=== PATIENT | male | born 1960 | race African-American/Black ===

== ENCOUNTER 2019-10-21 10:58 | Inpatient (IN) | payer OTHER ==
[~2019-10-21] VITALS: Ht 182.9 cm; Wt 138.4 kg
[2019-10-21] MEDS ORDERED: IPRATROPIUM BROMIDE (0.02%) 0.5MG/2.5ML NEB HHN STA (11:12)
[2019-10-21] MEDS ORDERED: METHYLPREDNISOLONE SOD SUCC 125 MG/2 ML VIAL IV STA (11:12)
[2019-10-21] MEDS ORDERED: MAGNESIUM 2 G PREMIX 50 ML IV ONE (11:15)
[2019-10-21] MEDS ORDERED: P EP PO (11:22)
[2019-10-21] MEDS ORDERED: PRED10TA23 PO (11:22)
[2019-10-21] MEDS ORDERED: FLUT16SP15 NS (11:22)
[2019-10-21] MEDS ORDERED: ATOR-2 PO (11:22)
[2019-10-21] MEDS ORDERED: CHOL200059 PO (11:22)
[2019-10-21] MEDS ORDERED: SEVE800T8 PO (11:22)
[2019-10-21] MEDS ORDERED: MONT10TA21 PO (11:22)
[2019-10-21] MEDS ORDERED: WARF-53 PO (11:22)
[2019-10-21] MEDS ORDERED: SILD20TA PO (11:22)
[2019-10-21] MEDS ORDERED: AMLO5TAB88 PO (11:22)
[2019-10-21] MEDS ORDERED: CALC0.253 PO (11:22)
[2019-10-21] MEDS ORDERED: IPRA3AMP31 IH (11:22)
[2019-10-21] MEDS ORDERED: LOSA100T32 PO (11:22)
[2019-10-21] MEDS ORDERED: METO25TA6 PO (11:22)
[2019-10-21 11:42] LABS: BASOPHILS % 0.3 % (0.0-2.0); CHLORIDE 107 mEq/L (98-107); EOSINOPHILS % 0.1 % (0.0-5.0); HEMATOCRIT. 30.6 % (42.0-52.0); LYMPHOCYTES % 14.4 % (20.0-50.0); MEAN CORPUSCULAR HEMOGLOBIN 30.4 pg (28.0-32.0); MEAN CORPUSCULAR VOLUME 93.1 fL (80.0-94.0); MEAN PLATELET VOLUME 10.9 fl (7.4-10.4); MONOCYTES % 7.6 % (2.0-8.0); NEUTROPHILS % 77.6 % (40.0-76.0); PLATELET 98 x1000/uL (130-400); RED BLOOD CELL COUNT 3.29 mill/uL (4.7-6.1); RED CELL DISTRIBUTION WIDTH 16.2 % (11.6-14.6)
[2019-10-21 11:49] LABS: INR 3.6; PARTIAL THROMBOPLASTIN TIME 37.6 sec (23.4-31.0); PROTHROMBIN TIME 34.5 sec (9.6-11.0)
[2019-10-21] MEDS ORDERED: VANCOMYCIN 1 G PREMIX 200 ML IV ONE (12:00)
[2019-10-21] MEDS ORDERED: PIPERACILLIN/TAZ 3.375G PREMIX 50 ML IV ONE (12:00)
[2019-10-21 12:05] LABS: BG BASE EXCESS -8.2 mmol/L (-2.0-2.0); BG CARBOXYHEMOGLOBIN 1.3 % (0.5-1.5); BG DEOXYHEMOGLOBIN 3.6 % (0.0-5.0); BG FRACTION INSPIRED OXYGEN 21; BG HCO3 ACT 17.7 mmol/L (22.0-26.0); BG METHEMOGLOBIN 0.3 % (0.0-1.5); BG OXYGEN SATURATION 96.3 % (92.0-98.5); BG OXYHEMOGLOBIN 94.8 % (94.0-97.0); BG PH 7.287 (7.350-7.450); BG PO2 95.9 mmHg (75.0-100.0); BG SAMPLE SITE LEFT RADIAL; BG TOTAL HEMOGLOBIN 12.2 g/dL (12.0-18.0); BG VENT MODE ROOM AIR
[2019-10-21] MEDS ORDERED: CLOPIDOGREL 75MG TABLET PO ONE (14:30)
[2019-10-21] MEDS ORDERED: ACETAMINOPHEN 325MG TABLET PO PRN (15:00)
[2019-10-21] MEDS ORDERED: IPRATROPIUM/ALBUTEROL 0.5-3(2.5)MG/3ML NEB HHN PRN (15:00)
[2019-10-21] MEDS ORDERED: CLONIDINE 0.1MG TABLET PO PRN (15:00)
[2019-10-21] MEDS ORDERED: ONDANSETRON HCL 4MG/2ML INJ IV PRN (15:00)
[2019-10-21] MEDS ORDERED: DIPHENHYDRAMINE 50MG/ML VIAL IV PRN (15:00)
[2019-10-21 16:00] VITALS: BP 131/85
[2019-10-21 16:33] VITALS: BP 131/85
[2019-10-21 17:01] LABS: PHOSPHORUS 4.4 mg/dL (2.5-4.9)
[2019-10-21 18:00] VITALS: BP 136/60
[2019-10-21] MEDS: MORPHINE SULFATE 4 MG/ML CPJ (NOT FOR IM USE) IV PRN (18:05)
[2019-10-21 20:01] VITALS: BP 131/89
[2019-10-21] MEDS: SODIUM CHLORIDE 0.9% INJ 3ML FLUSH IVF SCH (22:00)
[2019-10-21 22:03] VITALS: BP 129/76
[2019-10-22] VITALS (16 sets, daily range): BP systolic 108–159; BP diastolic 42–102
[2019-10-22] MEDS: MORPHINE SULFATE 4 MG/ML CPJ (NOT FOR IM USE) IV PRN ×3 (00:23→21:50)
[2019-10-22] MEDS: ATORVASTATIN CALCIUM 40MG TABLET PO SCH ×2 (00:51→21:35)
[2019-10-22] MEDS: GUAIFENESIN 600MG ER TABLET PO SCH ×3 (00:52→21:34)
[2019-10-22] MEDS: METHYLPREDNISOLONE SOD SUCC 125 MG/2 ML VIAL IV SCH ×4 (00:52→21:37)
[2019-10-22] MEDS: OMEPRAZOLE 20MG CAPSULE EXTENDED RELEASE PO SCH ×3 (00:52→21:50)
[2019-10-22] MEDS: GUAIFENESIN 200MG/10ML SUGAR FREE UDC PO PRN ×2 (00:53→21:36)
[2019-10-22] MEDS: BENZONATATE 100MG CAPSULE PO SCH ×4 (00:53→21:35)
[2019-10-22] MEDS: IPRATROPIUM/ALBUTEROL 0.5-3(2.5)MG/3ML NEB HHN SCH ×4 (01:34→20:55)
[2019-10-22] MEDS: SODIUM CHLORIDE 0.9% INJ 3ML FLUSH IVF SCH ×3 (06:44→21:50)
[2019-10-22] MEDS: CALCITRIOL 0.25MCG CAPSULE PO SCH (08:18)
[2019-10-22] MEDS: SEVELAMER CARBONATE 800 MG TABLET PO SCH ×3 (08:18→17:35)
[2019-10-22] MEDS: CHOLECALCIFEROL (D3) 1000 UNIT TABLET PO SCH (08:19)
[2019-10-22 17:08] LABS: CREATINE KINASE MB FRACTION 9.4 ng/mL (0.5-3.6)
[2019-10-22 18:52] LABS: T4 FREE 0.79 ng/dL (0.76-1.46)
[2019-10-22] MEDS: CARVEDILOL 3.125 MG TABLET PO SCH (21:34)
[2019-10-23] MEDS: IPRATROPIUM/ALBUTEROL 0.5-3(2.5)MG/3ML NEB HHN SCH ×3 (01:50→12:04)
[2019-10-23] MEDS: SODIUM CHLORIDE 0.9% INJ 3ML FLUSH IVF SCH ×2 (06:00→14:22)
[2019-10-23 06:31] LABS: HEMATOCRIT. 30.3 % (42.0-52.0); MEAN CORPUSCULAR HEMOGLOBIN 30.3 pg (28.0-32.0); MEAN CORPUSCULAR VOLUME 92.1 fL (80.0-94.0); MEAN PLATELET VOLUME 10.7 fl (7.4-10.4); PLATELET 105 x1000/uL (130-400); RED BLOOD CELL COUNT 3.29 mill/uL (4.7-6.1); RED CELL DISTRIBUTION WIDTH 16.7 % (11.6-14.6)
[2019-10-23 07:40] LABS: CREATINE KINASE MB FRACTION 9.3 ng/mL (0.5-3.6)
[2019-10-23] MEDS: OMEPRAZOLE 20MG CAPSULE EXTENDED RELEASE PO SCH (09:13)
[2019-10-23] MEDS: GUAIFENESIN 200MG/10ML SUGAR FREE UDC PO PRN ×2 (09:13→14:21)
[2019-10-23] MEDS: CHOLECALCIFEROL (D3) 1000 UNIT TABLET PO SCH (09:14)
[2019-10-23] MEDS: GUAIFENESIN 600MG ER TABLET PO SCH (09:15)
[2019-10-23] MEDS: BENZONATATE 100MG CAPSULE PO SCH ×2 (09:15→14:21)
[2019-10-23] MEDS: CALCITRIOL 0.25MCG CAPSULE PO SCH (09:15)
[2019-10-23] MEDS: SEVELAMER CARBONATE 800 MG TABLET PO SCH ×2 (09:15→14:21)
[2019-10-23] MEDS: CARVEDILOL 3.125 MG TABLET PO SCH (09:15)
[2019-10-23] MEDS: METHYLPREDNISOLONE SOD SUCC 125 MG/2 ML VIAL IV SCH ×2 (09:30→14:21)
[2019-10-23 10:00] VITALS: BP 142/69
[2019-10-23 11:38] LABS: PLATELET ESTIMATE DECREASED
[2019-10-23 12:00] VITALS: BP 139/91
[2019-10-23 13:39] VITALS: BP 136/52
[2019-10-23] MEDS ORDERED: LIDOCAINE HCL 1% 20ML VIAL (Pyxis) INJ ONE (15:36)
[2019-10-23] MEDS ORDERED: SODIUM BICARBONATE 4% (2.4MEQ) 5ML VIAL IV ONE (15:36)
[2019-10-23 16:00] VITALS: BP 128/82
[2019-10-23 16:51] VITALS: BP 128/82
[2019-10-23] MEDS ORDERED: CEFTRIAXONE 1 G PREMIX 50 ML IV SCH (17:00)
[2019-10-23 17:15] VITALS: BP 128/82
[2019-10-23] MEDS ORDERED: CLOPIDOGREL 75MG TABLET PO SCH (17:30)
[2019-10-23] MEDS ORDERED: AZITHROMYCIN 500 MG in DEXT 5% WATER 250 ML IV SCH (18:00)
== END 2019-10-23 17:50 | disposition short-term general hospital (02) | DRG 280 ==
LOC: ER 10:58 → 5EST 13:43 → EDBEDREQ 13:46 → EDBEDREQSVC 13:46 → ENRESERV 14:37
PROVIDERS: ADMIT Internal Medicine; ATTEND Internal Medicine
PROC: 5A2204Z Restoration of Cardiac Rhythm, Single (ICD-10-PCS; 2019-10-21)
PROC: 3E1M39Z Irrigation of Peritoneal Cavity using Dialysate, Percutaneous Approach (ICD-10-PCS; 2019-10-21)
PROC: 3E1M39Z Irrigation of Peritoneal Cavity using Dialysate, Percutaneous Approach (ICD-10-PCS; 2019-10-22)
PROC: 02HV33Z Insertion of Infusion Device into Superior Vena Cava, Percutaneous Approach (ICD-10-PCS; principal; 2019-10-23)
PROC: B548ZZA Ultrasonography of Superior Vena Cava, Guidance (ICD-10-PCS; 2019-10-23)
PROC: 3E1M39Z Irrigation of Peritoneal Cavity using Dialysate, Percutaneous Approach (ICD-10-PCS; 2019-10-23)
DX: I21.4 Non-ST elevation (NSTEMI) myocardial infarction (principal); N18.6 End stage renal disease; J18.9 Pneumonia, unspecified organism; D68.9 Coagulation defect, unspecified; E44.0 Moderate protein-calorie malnutrition; I82.531 Chronic embolism and thrombosis of right popliteal vein; E87.2 Acidosis; I47.1 Supraventricular tachycardia; I12.0 Hypertensive chronic kidney disease with stage 5 chronic kidney disease or end stage renal disease; J44.0 Chronic obstructive pulmonary disease with (acute) lower respiratory infection; Z68.41 Body mass index [BMI] 40.0-44.9, adult; D69.6 Thrombocytopenia, unspecified; E11.22 Type 2 diabetes mellitus with diabetic chronic kidney disease; E66.01 Morbid (severe) obesity due to excess calories; E78.00 Pure hypercholesterolemia, unspecified; I95.9 Hypotension, unspecified; E78.5 Hyperlipidemia, unspecified; I25.10 Atherosclerotic heart disease of native coronary artery without angina pectoris; Z72.0 Tobacco use; Z99.2 Dependence on renal dialysis; Z88.6 Allergy status to analgesic agent; Z88.2 Allergy status to sulfonamides
CPT/HCPCS: 36415; 36600; 71045; 76937; 78582; 80048; 80053; 80061; 82375; 82550; 82553; 82805; 83036; 83605; 83735; 83880; 84100; 84439; 84443; 84484; 85025; 85379; 86850; 86900; 87804; 93005; 93306; 93970; 94640; 96365; 96367; 96375; 99291; A9558; C1725; J0456; J0696; J2270; J2543; J2930; J3370; J3475; J3490; J7060; J7620

== ENCOUNTER 2021-09-03 17:04 | Emergency (ER) | payer OTHER ==
[~2021-09-03] VITALS: Ht 185.4 cm; Wt 170.0 kg
[~2021-09-03 17:04] MED LIST: AMLO5TAB88 PO; ATOR-2 PO; CALC0.253 PO; CHOL200059 PO; FLUT16SP15 NS; IPRA3AMP31 IH; LOSA100T32 PO; METO25TA6 PO; MONT10TA21 PO; P EP PO; PRED10TA23 PO; SEVE800T8 PO; SILD20TA PO; WARF-53 PO
[2021-09-03] MEDS ORDERED: METHYLPREDNISOLONE SOD SUCC 125 MG/2 ML VIAL IV STA ×2 (17:09→17:14)
[2021-09-03] MEDS ORDERED: ALBUTEROL (0.083%) 2.5MG/3ML NEB HHN STA ×2 (17:14→19:09)
[2021-09-03] MEDS ORDERED: IPRATROPIUM BROMIDE (0.02%) 0.5MG/2.5ML NEB HHN STA ×2 (17:14→19:09)
[2021-09-03 17:25] LABS: BASOPHILS % 0.7 % (0.0-2.0); EOSINOPHILS % 1.4 % (0.0-5.0); HEMATOCRIT. 31.1 % (42.0-52.0); HEMOGLOBIN. 9.7 g/dL (14.0-18.0); LYMPHOCYTES % 15.1 % (20.0-50.0); MEAN CORPUSCULAR HEMOGLOBIN 28.2 pg (28.0-32.0); MEAN CORPUSCULAR VOLUME 90.2 fL (80.0-94.0); MEAN PLATELET VOLUME 8.4 fl (7.4-10.4); MONOCYTES % 13.1 % (2.0-8.0); NEUTROPHILS % 69.7 % (40.0-76.0); PLATELET 225 x1000/uL (130-400); RED BLOOD CELL COUNT 3.44 mill/uL (4.7-6.1)
[2021-09-03 17:29] LABS: CHLORIDE 96 mEq/L (98-107)
[2021-09-03] MEDS ORDERED: IOHEXOL-350 100 ML BOTTLE ONE (20:49)
[2021-09-04] MEDS ORDERED: ACETAMINOPHEN 325MG TABLET PO ONE (00:15)
[2021-09-04] MEDS ORDERED: MORPHINE SULFATE 4 MG/ML CPJ (NOT FOR IM USE) IV ONE (01:45)
[2021-09-04 05:05] VITALS: BP 158/87
== END 2021-09-04 05:10 | disposition left against medical advice (07) ==
LOC: ER 17:04 → CANBEDREQ 09-04 09:26
DX: I12.0 Hypertensive chronic kidney disease with stage 5 chronic kidney disease or end stage renal disease (principal); R07.89 Other chest pain; R06.02 Shortness of breath; J44.9 Chronic obstructive pulmonary disease, unspecified; F17.290 Nicotine dependence, other tobacco product, uncomplicated; F12.10 Cannabis abuse, uncomplicated; E11.22 Type 2 diabetes mellitus with diabetic chronic kidney disease; N18.6 End stage renal disease; Z99.2 Dependence on renal dialysis; Z79.899 Other long term (current) drug therapy; Z20.822 Contact with and (suspected) exposure to COVID-19
CPT/HCPCS: 36415; 71045; 71275; 80053; 83605; 83880; 84484; 85025; 87426; 94640; 94644; 94660; 96374; 96375; 99285; J2270; J2930; Q9967